=== PATIENT | male | born 1955 | race Caucasian/White ===

== ENCOUNTER → 2016-12-09 | Outpatient (CLI) | payer BC ==
[~2016-12-09] MED LIST: ASPI81TA28 PO; COEN100C11 PO; HYDR25TA5 PO; IBUP-1277 PO; LPT/20 PO; METO1TAB69 PO; MULTTAB PO; SILD100T PO; SYN125 PO
[2016-12-09 11:23] LABS: ESTIMATED AVERAGE GLUCOSE 117 mg/dl; HA1C FLAG Normal (Normal)
[2016-12-09 11:39] LABS: BASO % 0.3 %; BASO ABS # 0.02 K/uL (0-0.2); COMPLETE YES; EOS % 1.1 %; HEMATOCRIT 43.8 % (42-52); IG% 0.1 %; LYMPH % 27.5 %; LYMPH ABS # 2.07 K/uL (1.2-3.4); MEAN CELL VOLUME 85.9 fL (80-100); MEAN CORPUSCULAR HEMOGLOBIN 30.2 pg (25-34); MEAN CORPUSCULAR HGB CONC 35.2 g/dl (32-36); MEAN PLATELET VOLUME 11.3 fL (7.4-10.4); MONO % 5.7 %; NEUT % 65.3 %; PLATELET COUNT 162 K/uL (130-400); WHITE BLOOD COUNT 7.52 K/uL (4.8-10.8)
[2016-12-09 11:45] LABS: ALT/SGPT 33 U/L (12-78); BLOOD UREA NITROGEN 20 mg/dl (7-18); CALCIUM 8.8 mg/dl (8.5-10.1); CARBON DIOXIDE 26 mmol/L (21-32); CHLORIDE 106 mmol/L (98-107); CHOLESTEROL 141 mg/dl (0-200); GLUCOSE 107 mg/dl (70-99); POTASSIUM 3.9 mmol/L (3.5-5.1); SODIUM 141 mmol/L (136-145)
[2016-12-09 11:55] LABS: ALB/GLOB RATIO 1.3 (0.9-2); ALKALINE PHOSPHATASE 71 U/L (45-117); AST/SGOT 15 U/L (15-37); CHOLESTEROL/HDL RATIO 3.6; HDL CHOLESTEROL 39 mg/dl; LDL CHOLESTEROL CALCULATED 64 mg/dl; TRIGLYCERIDES 191 mg/dl (0-150); VERY LOW DENSITY LIPOPROT CALC 38 mg/dl
[2016-12-09 11:56] LABS: HEPATITIS B AB POS
[2016-12-13 14:38] LABS: HEP B QUANT <20 IU/mL (<20); HEP B QUANT LOG IU/ML <1.30 Log IU/mL (<1.30); HEPATITIS BE ANTIGEN TC 555 Nonreactive
== END | disposition home or self-care (01) ==
LOC: C.LABBC 08:44
PROVIDERS: ATTEND Internal Medicine
DX: I47.1 Supraventricular tachycardia (principal); B19.10 Unspecified viral hepatitis B without hepatic coma

== ENCOUNTER → 2017-01-17 | Outpatient (CLI) | payer BC | END | disposition home or self-care (01) | LOC: C.RDSM 08:30 | PROVIDERS: ATTEND Physical Medicine & Rehabilitation Sports Medicine | DX: M25.561 Pain in right knee (principal); M25.562 Pain in left knee ==

== ENCOUNTER → 2017-06-22 | Outpatient (CLI) | payer BC ==
--- NOTE | 2017-06-22 13:51 | DIAGNOSTIC IMAGING REPORT ---
SINUSES-MAXILLOFACIAL W/O HISTORY: 62 years-old Male J34.2 Deviated nasal [id number] COMPARISON: CT maxillofacial 07/05/2016 TECHNIQUE: Multiple axial CT images of the maxillofacial bones were obtained without IV contrast. Coronal reformatted images were obtained Venous enhancement for review. A dose lowering technique was used consistent with the principals of TACOS. FINDINGS: There has been prior bilateral maxillary antrostomy. Large area of polypoid mucosal thickening of the left maxillary sinus has increased in size, now measuring 3.4 x 2.7 x 4.0 cm, previously measuring up to 2.8 cm in greatest dimension. Mild polypoid mucosal thickening is seen within the floor of the right maxillary antrum. Focus of polypoid mucosal thickening is seen within the left nasopharynx, 3.0 x 2.2 cm, previously 1.8 x 0.8 cm. There is mild leftward deviation of the nasal septum with associated spurring. No nasal bone fracture identified. Facial bones appear intact. The mastoid air cells and middle ear cavities are clear. The sphenoid and frontal sinuses are generally clear. There is mild mucosal thickening of the ethmoid air cells. The sphenoethmoidal and frontoethmoidal recesses are widely patent. The bilateral maxillary ostiomeatal units are also widely patent. No Pj cells are identified. No large delroy bullosa. There are several periapical cysts of the left maxillary second molar. The imaged intracranial structures demonstrate no acute abnormality. There is mild cerebral atrophy. IMPRESSION: 1. Evidence of prior bilateral maxillary antrostomy with patency of the bilateral maxillary ostiomeatal units. 2. Worsened left maxillary sinus disease with increased size of the focus of polypoid mucosal thickening. 3. Probable polyp of the left nasopharynx has also increased in size from prior study, now measuring up to 3.0 cm. 4. Mild ethmoid sinus disease. The above report was generated using voice recognition software. It may contain grammatical, syntax or spelling errors. Electronically signed by: Chuy Carrera M.D. 06/22/2017 1:50 PM Dictated Date/Time: 06/22/2017 1:43 PM
== END | disposition home or self-care (01) ==
LOC: C.CTS 12:19
PROVIDERS: ATTEND Internal Medicine
DX: J34.2 Deviated nasal septum (principal)

== ENCOUNTER → 2017-07-07 | Outpatient (CLI) | payer BC | END | disposition home or self-care (01) | LOC: C.LABBC 14:56 | PROVIDERS: ATTEND Urology | DX: N40.1 Benign prostatic hyperplasia with lower urinary tract symptoms (principal); R39.12 Poor urinary stream ==

== ENCOUNTER → 2017-12-14 | Outpatient (CLI) | payer OTHER ==
[~2017-12-14] MED LIST changes: -LPT/20 PO; +LPT20 PO; +METO100T44 PO; -METO1TAB69 PO
[2017-12-14 12:11] LABS: HEMOGLOBIN A1C 5.5 % (4.5-5.6)
[2017-12-14 13:59] LABS: ALBUMIN 3.9 gm/dl (3.4-5.0); ALT/SGPT 26 U/L (12-78); BLOOD UREA NITROGEN 20 mg/dl (7-18); CALCIUM 8.7 mg/dl (8.5-10.1); CARBON DIOXIDE 28 mmol/L (21-32); CHOLESTEROL 136 mg/dl (0-200); CREATININE 1.13 mg/dl (0.60-1.40); GLUCOSE 122 mg/dl (70-99); POTASSIUM 3.9 mmol/L (3.5-5.1); SODIUM 138 mmol/L (136-145)
[2017-12-14 14:09] LABS: ALKALINE PHOSPHATASE 64 U/L (45-117); AST/SGOT 14 U/L (15-37); LDL CHOLESTEROL CALCULATED 64 mg/dl; TOTAL PROTEIN 7.1 gm/dl (6.4-8.2)
== END | disposition home or self-care (01) ==
LOC: C.LABBC 08:46
PROVIDERS: ATTEND Internal Medicine
DX: E03.9 Hypothyroidism, unspecified (principal); Z86.39 Personal history of other endocrine, nutritional and metabolic disease

== ENCOUNTER → 2018-03-08 | Outpatient (CLI) | payer OTHER ==
[2018-03-08 10:55] LABS: BLOOD UREA NITROGEN 20 mg/dl (7-18); CREATININE 1.13 mg/dl (0.60-1.40)
== END | disposition home or self-care (01) ==
LOC: C.LABBC 07:55
PROVIDERS: ATTEND Urology
DX: R39.12 Poor urinary stream (principal)

== ENCOUNTER 2019-08-13 14:10 | Observation (INO) ==
[2019-08-13] MEDS ORDERED: fentaNYL citrate 100 MCG/2 ML VIAL IV STA (15:16)
--- NOTE | 2019-08-13 15:30 | Emergency Department Note ---
ED Provider Note CHIEF COMPLAINT: Chest pain HISTORY OF PRESENTING ILLNESS: This is a 64-year-old male with past medical history significant for hypertension, dyslipidemia, type 2 diabetes, and a family history of coronary artery disease, who presents to the emergency department today with complaint of sudden onset of left-sided and midsternal chest pain that started about 2:15 PM. Patient states that the pain came on abruptly and "felt like a bomb going off in my chest," the pain was initially a 10/10, but is now improving and is more like a dull ache and he rates it as 6/10. Patient states when the pain started that he also felt very dizzy, nauseated, and diaphoretic, he reports all of these symptoms have resolved currently. There was no loss of consciousness. He denies shortness of breath, vomiting, or headache. Patient states the pain does not radiate into his neck, jaw, back, or arm, but does note that his left arm feels a little heavy and cold. He denies any numbness/tingling, or weakness of the arms or legs. He denies any history of coronary artery disease. He does note that he had a stress test a year ago that was normal. He is not a smoker. He denies any abdominal pain or back pain. The patient reports he took a full-strength aspirin this morning. REVIEW OF SYSTEMS: A complete 10 point review of systems was reviewed with the patient with pertinent positives and negatives as per history of present illness. All else were negative. PAST MEDICAL HISTORY: Hypertension, dyslipidemia, type 2 diabetes, hypothyroidism SOCIAL HISTORY: Lives at home with family, he denies tobacco use ALLERGIES: No known allergies PHYSICAL EXAM: CONSTITUTIONAL: Pleasant and cooperative. Nontoxic-appearing and in no acute distress. Well appearing and well nourished. HEENT: Normocephalic, atraumatic. PERRL, EOMI. Pharynx normal. NECK: Supple, full active range of motion without discomfort. No cervical adenopathy. RESPIRATORY: Clear to auscultation bilaterally with no wheezing, crackles, rhonchi or stridor. Equal expansion bilaterally. CARDIOVASCULAR: Regular rate and rhythm with no murmurs, rubs or gallops. Normal peripheral perfusion, 2+ distal pulses in all 4 extremities. No edema. CHEST WALL: Tenderness to palpation of the left anterior chest wall, somewhat reproduces complaint. No ecchymosis, swelling, erythema, or palpable crepitus. GASTROINTESTINAL: Soft, nontender, nondistended. No palpable masses or HSM. Bowel sounds present in all quadrants. No CVA tenderness bilaterally. MUSCULOSKELETAL: Full range of motion of all joints without discomfort. INTEGUMENTARY: No rash or other significant dermatologic conditions noted. NEUROLOGIC: Alert and oriented X 4 with normal affect. Cranial nerves II-XII grossly intact, no facial droop. No pronator drift. No focal neurologic deficits noted. 5/5 strength in all 4 extremities. Sensation intact to light touch in all 4 extremities. Normal speech. Normal gait observed. ED COURSE AND MEDICAL DECISION MAKING: CC: Patient presenting with complaint of chest pain DIFFERENTIAL DIAGNOSIS: Includes, but not limited to acute coronary syndrome, aortic dissection, pulmonary embolism, pneumothorax, pericarditis, myocarditis, anxiety, musculoskeletal pain, GERD, costochondritis, pneumonia, among others. INTERPRETATION OF LABS: No leukocytosis, no anemia, normal platelets, no significant electrolyte abnormalities, normal renal function, normal liver enzymes and lipase. Initial cardiac enzymes negative. Coagulation factors within normal limits. IMAGING: XR chest 1V portable CLINICAL HISTORY: Chest Pain COMPARISON STUDY: Chest radiograph September 18, 2018 FINDINGS: Lung volumes are normal. Lungs are clear. There is no pneumothorax or pleural effusion. Cardiomediastinal silhouette is stable. Mediastinal contours are normal. There is no evidence for pulmonary edema. IMPRESSION: No acute cardiopulmonary findings. ----- CT ANGIOGRAM OF THE CHEST COMBO CLINICAL HISTORY: Atypical chest pain. COMPARISON STUDY: Chest x-ray dated 08/13/2019. TECHNIQUE: Before and following the IV administration of 120 cc of Optiray 320, CT angiogram of the chest was performed from the thoracic inlet to the upper abdomen utilizing the dissection protocol. Images are reviewed in the axial, sagittal, and coronal planes. 3-D MIPS images are created and assessed. IV contrast was administered without complication. A dose lowering technique was utilized adhering to the principles of ALARA. CT DOSE: 1127.97 mGy.cm FINDINGS: Thyroid: Atrophic. Thoracic aorta: There is mild atherosclerotic calcification of the thoracic aorta. No intramural hematoma is seen on the unenhanced series. The thoracic aorta is normal in caliber and demonstrates standard 3-vessel arch anatomy. No dissection is seen. The arch vessels are widely patent. Pulmonary vasculature: The pulmonary trunk is normal in caliber. There are no central filling defects identified in the main, lobar, or segmental pulmonary arteries to indicate pulmonary embolus. Heart: The heart is mildly enlarged and without pericardial effusion. There are scattered coronary artery calcifications. Lungs and pleural spaces: There is no airspace consolidation or pleural effusion. The trachea and central airways are clear. Scattered calcified granulomas are observed. Scarring/atelectasis is noted in the lingula. There is a 7 mm left lower lobe pulmonary nodule seen on image #209. Mediastinum: There is no mediastinal lymphadenopathy. Kay: Clear. Axillae: There is no axillary lymphadenopathy. Upper abdomen: A 1.7 cm cyst is noted in the right hepatic lobe. Additional subcentimeter hepatic hypodensities also likely represent cysts but are too small for definitive characterization. The spleen is mildly enlarged measuring 13.6 cm in length. There is a calcified splenic granuloma. Skeletal structures: Mild degenerative changes noted in the shoulders and thoracic spine. No lytic or blastic bony lesions are seen. IMPRESSION: 1. There is no aneurysm or dissection identified involving the thoracic aorta. 2. There is no evidence of pulmonary embolus in the main, lobar, or segmental p ulmonary arteries. 3. There is no airspace consolidation or pleural effusion. 4. Mild cardiomegaly. 5. There is a 7 mm pathologically indeterminant left lower lobe pulmonary nodule. This can be followed as per the Fleischner criteria. See below. EKG: Shows normal sinus rhythm with a rate of 62 bpm, normal intervals, no ST or T wave abnormalities, no ectopy, no significant change when compared to previous EKG from 09/18/2018 by my interpretation. MEDICATION RECONCILIATION: I attest that I have personally reviewed the patient's current medication list. INITIAL VITAL SIGNS REVIEW: I reviewed the patient's initial vital signs and interpret them as follows: T: Afebrile; BP: Hypertensive; HR: Within normal limits; RR: Within normal limits; Pulse Ox: Within normal limits on room air. Blood pressure screening: The patient was found to have an elevated blood pressure and was referred to the inpatient team for further management. MDM SUMMARY: Patient was evaluated at bedside, history and physical exam performed. Patient is alert and oriented, in no acute distress, resting calmly in stretcher. Patient is complaining of a dull aching chest pain that he describes as starting suddenly and being severe and feeling like an explosion in his chest. At the initial onset of the chest pain, the patient was nauseated, dizzy, and diaphoretic, he states all of these have resolved currently. I did perform bilateral upper extremity blood pressures at the bedside, BP of the left arm 144/89; BP of the right arm 148/94. Patient has a Heart score of 4, placing him at moderate risk for chest pain presentation. EKG was reviewed at the bedside, noting normal sinus rhythm with no acute i schemic changes. Orders were placed at bedside for labs, IV fentanyl for pain, chest x-ray, CTA of the chest to evaluate for dissection. Patient discussed with Dr. Daniel, who agrees with my assessment, plan, and disposition. Labs and imaging reviewed as above, labs are unremarkable. Initial cardiac enzymes are all negative. CTA of the chest does not show any evidence of an aneurysm, aortic dissection, or pulmonary embolism. Given the patient's risk factors, I did feel that he would benefit from hospital admission for chest pain rule out. Patient reassessed multiple times throughout ED stay, he has remained hemodynamically stable and reports that his chest pain is almost completely gone after the fentanyl. The patient and his were updated on all results and plan for staying in the hospital for chest pain observation, they verbalized understanding and were agreeable to this plan. I spoke with Dr. Damico, [facility] Hospitalist, who agrees to evaluate the patient. The patient was stable at time of admission. The chart was completed utilizing Olo Speech voice recognition software. Grammatical errors, random word insertions, pronoun errors, and incomplete sentences are an occasional consequence of this system due to software limitations, ambient noise, and hardware issues. Any formal questions or concerns about the content, text, or information contained within the body of this dictation should be directly addressed to the nurse practitioner for clarification. Impression & Plan Acute chest pain, Hypertension Past Med/Surg History Medical History Dyslipidemia (Chronic) History of paroxysmal supraventricular tachycardia (Chronic) Hypothyroidism (Chronic) Social History Preferred Language: Palauan Communication Ability: Effective Fireproof Door Maker Required: No Beliefs That Will Affect Care: None Current Living Situation: Spouse and Family Other Information That Helps Us Care for You: No Feels Safe at Home: Yes Smoking Status: Never smoker Do You Dip or Chew Tobacco: No ; Second Hand Exposure: No ; Tobacco Cessation Education Requested by Patient: No Hx Alcohol Use: Yes Alcohol type: beer and wine Hx Substance Use: No Results & Data Vital Signs Vital Signs - 24 hr 08/13/19 14:11 08/13/19 14:17 08/13/19 14:31 Temperature 36.6 C Temperature Source Oral Sepsis Recent Fever Within 48 Hours No Sepsis New/Unexplained Change in Mental Status No Sepsis Action Taken by Nursing No Action Required Pulse Rate 63 67 Pulse Rate from SpO2 Sensor 69 Respiratory Rate 20 12 Respiratory Effort / Characteristics Respiratory Depth Blood Pressure 148/80 H 143/83 H Blood Pressure Mean 102 103 Blood Pressure Position Sitting Pulse Oximetry 96 98 97 Oxygen Delivery Method Room Air Room Air 08/13/19 14:33 08/13/19 14:40 08/13/19 14:51 Temperature Temperature Source Sepsis Recent Fever Within 48 Hours Sepsis New/Unexplained Change in Mental Status Sepsis Action Taken by Nursing Pulse Rate 66 67 Pulse Rate from SpO2 Sensor 66 67 Respiratory Rate 14 21 Respiratory Effort / Characteristics Non-Labored Spontaneous Respiratory Depth Normal Blood Pressure 136/82 Blood Pressure Mean 100 Blood Pressure Position Pulse Oximetry 99 Oxygen Delivery Method 08/13/19 15:38 08/13/19 16:30 08/13/19 17:00 Temperature Temperature Source Sepsis Recent Fever Within 48 Hours Sepsis New/Unexplained Change in Mental Status Sepsis Action Taken by Nursing Pulse Rate 60 63 66 Pulse Rate from SpO2 Sensor 63 66 Respiratory Rate 17 13 13 Respiratory Effort / Characteristics Respiratory Depth Blood Pressure 151/90 H 138/87 140/95 Blood Pressure Mean 110 104 110 Blood Pressure Position Pulse Oximetry 96 97 Oxygen Delivery Method Laboratory Data Result diagrams: 08/13/19 14:30 08/13/19 14:30 Lab Results 08/13/19 08/13/19 08/13/19 Range/Units 14:30 14:30 14:30 WBC 7.45 (4.8-10.8) K/uL RBC 4.94 (4.7-6.1) M/uL Hgb 15.0 (14.0-18.0) g/dL POC Hgb (14.0-18.0) g/dl Hct 43.5 (42-52) % POC Hct (42-52) % MCV 88.1 (80-100) fL MCH 30.4 (25-34) pg MCHC 34.5 (32-36) g/dL RDW Std Deviation 43.9 (36.4-46.3) fL RDW Coeff of Abdiel 13.6 (11.5-14.5) % Plt Count 146 (130-400) K/uL MPV 11.0 H (7.4-10.4) fL Immature Gran % (Auto) 0.3 % Neut % (Auto) 61.1 % Lymph % (Auto) 31.7 % Denali % (Auto) 5.8 % Eos % (Auto) 0.8 % Baso % (Auto) 0.3 % Immature Gran # (Auto) 0.02 (0.00-0.02) K/uL Neut # (Auto) 4.56 (1.4-6.5) K/uL Lymph # (Auto) 2.36 (1.2-3.4) K/uL Denali # (Auto) 0.43 (0.11-0.59) K/uL Eos # (Auto) 0.06 (0-0.5) K/uL Baso # (Auto) 0.02 (0-0.2) K/uL PT 10.3 (9.0-12.0) Seconds INR 1.0 (0.9-1.1) APTT 26.2 (21.0-31.0) Seconds PTT Ratio 1.0 POC Sodium (135-144) mEq/L Sodium 137 (136-145) mmol/L POC Potassium (3.3-5.0) mEq/L Potassium 3.5 (3.5-5.1) mmol/L POC Chloride (101-112) mEq/L Chloride 103 (98-107) mmol/L Carbon Dioxide 27 (21-32) mmol/L POC Total CO2 (24-31) mEq/l Anion Gap 7.0 (3-11) POC Anion Gap (16-25) mmol/L POC BUN (7-18) mg/dl BUN 15 (7-18) mg/dl Creatinine 1.05 (0.6-1.4) mg/dl POC Creatinine (0.6-1.3) mg/dl Est Cr Clr Drug Dosing 78.7 ml/min Est GFR ( Amer) 86.5 Est GFR (Non-Af Amer) 74.7 BUN/Creatinine Ratio 14.2 (10-20) Glucose 114 H (70-99) mg/dl POC Glucose (other) (70-99) mg/dl Calcium 9.3 (8.5-10.1) mg/dl POC Ioniz Calcium Obed (1.12-1.32) mmol/l Total Bilirubin 0.5 (0.2-1) mg/dl AST 13 L (15-37) U/L ALT 30 (12-78) U/L Alkaline Phosphatase 75 (45-117) U/L Total Creatine Kinase 63 (39-308) U/L CK-MB (CK-2) < 1.0 (0.5-3.6) ng/ml CK/CKMB % Calc TNP Troponin I < 0.015 (0-0.045) ng/ml Total Protein 7.3 (6.4-8.2) gm/dl Albumin 4.1 (3.4-5.0) gm/dl Globulin 3.2 (2.5-4.0) gm/dl Albumin/Globulin Ratio 1.3 (0.9-2) Lipase 153 (73-393) U/L 08/13/19 08/13/19 08/13/19 Range/Units 14:30 14:30 15:29 WBC (4.8-10.8) K/uL RBC (4.7-6.1) M/uL Hgb (14.0-18.0) g/dL POC Hgb 14.6 (14.0-18.0) g/dl Hct (42-52) % POC Hct 43 (42-52) % MCV (80-100) fL MCH (25-34) pg MCHC (32-36) g/dL RDW Std Deviation (36.4-46.3) fL RDW Coeff of Abdiel (11.5-14.5) % Plt Count (130-400) K/uL MPV (7.4-10.4) fL Immature Gran % (Auto) % Neut % (Auto) % Lymph % (Auto) % Denali % (Auto) % Eos % (Auto) % Baso % (Auto) % Immature Gran # (Auto) (0.00-0.02) K/uL Neut # (Auto) (1.4-6.5) K/uL Lymph # (Auto) (1.2-3.4) K/uL Denali # (Auto) (0.11-0.59) K/uL Eos # (Auto) (0-0.5) K/uL Baso # (Auto) (0-0.2) K/uL PT (9.0-12.0) Seconds INR (0.9-1.1) APTT (21.0-31.0) Seconds PTT Ratio POC Sodium 138 (135-144) mEq/L Sodium (136-145) mmol/L POC Potassium 3.4 (3.3-5.0) mEq/L Potassium (3.5-5.1) mmol/L POC Chloride 98 L (101-112) mEq/L Chloride (98-107) mmol/L Carbon Dioxide (21-32) mmol/L POC Total CO2 26 (24-31) mEq/l Anion Gap (3-11) POC Anion Gap 18.0 (16-25) mmol/L POC BUN 16 (7-18) mg/dl BUN (7-18) mg/dl Creatinine (0.6-1.4) mg/dl POC Creatinine 1.0 (0.6-1.3) mg/dl Est Cr Clr Drug Dosing ml/min Est GFR ( Amer) Est GFR (Non-Af Amer) BUN/Creatinine Ratio (10-20) Glucose (70-99) mg/dl POC Glucose (other) 114 H (70-99) mg/dl Calcium (8.5-10.1) mg/dl POC Ioniz Calcium Obed 1.19 (1.12-1.32) mmol/l Total Bilirubin (0.2-1) mg/dl AST (15-37) U/L ALT (12-78) U/L Alkaline Phosphatase (45-117) U/L Total Creatine Kinase Cancelled (39-308) U/L CK-MB (CK-2) Cancelled (0.5-3.6) ng/ml CK/CKMB % Calc Cancelled Troponin I (0-0.045) ng/ml Total Protein (6.4-8.2) gm/dl Albumin (3.4-5.0) gm/dl Globulin (2.5-4.0) gm/dl Albumin/Globulin Ratio (0.9-2) Lipase Cancelled (73-393) U/L Administered Medications Hydrochlorothiazide (Hctz) 12.5 mg PO DAILY@1700 TRIP Stop: 09/12/19 19:29 Last Admin: 08/13/19 21:22 Dose: 12.5 mg Documented by: [id number] Ioversol (Optiray 320 100ml) 120 ml IV ONCE PRN PRN Reason: Interaction Checking Stop: 08/17/19 16:04 Last Admin: 08/13/19 16:06 Dose: 120 ml Documented by: [id number] Discontinued Medications Fentanyl Citrate (Fentanyl Citrate) 50 mcg IV NOW STA Stop: 08/13/19 15:17 Last Admin: 08/13/19 15:39 Dose: 50 mcg Documented by: [id number] Discharge Plan Visit Data *Final* Discharge Date/Time: 08/13/19 18:17 Chief Complaint: Chest Pain Stated Complaint: CHEST PAIN,SWEATY,DIZZY ED Provider: Abebe Daniel ED Midlevel Provider: Basilia Cantrell Discharge Problem: Acute chest pain, Hypertension Patient Disposition: Admitted As Inpatient Condition: Good Discharge Instructions Interventions: ED Discharge Assessment Last Done: 08/13/19 18:17
[2019-08-13 15:35] LABS: Alanine Aminotransferase 30 U/L (12-78); Albumin Level 4.1 gm/dl (3.4-5.0); Aspartate Aminotransferase 13 U/L (15-37); BUN Creatinine Ratio 14.2 (10-20); Blood Urea Nitrogen 15 mg/dl (7-18); Calcium 9.3 mg/dl (8.5-10.1); Carbon Dioxide 27 mmol/L (21-32); Chloride 103 mmol/L (98-107); Creatinine Clr Calc Pharmacy 78.7 ml/min; Est GFR (African American) 86.5; Est GFR (Non-African American) 74.7; Glucose 114 mg/dl (70-99); Potassium 3.5 mmol/L (3.5-5.1); Sodium 137 mmol/L (136-145)
[2019-08-13 15:40] LABS: Albumin Globulin Ratio 1.3 (0.9-2); Alkaline Phosphatase 75 U/L (45-117); Bilirubin,Total 0.5 mg/dl (0.2-1); Globulin 3.2 gm/dl (2.5-4.0); Total Protein 7.3 gm/dl (6.4-8.2); Troponin I < 0.015 ng/ml (0-0.045)
[2019-08-13 15:42] LABS: Partial Thromboplastin Time 26.2 Seconds (21.0-31.0); Prothrombin Time 10.3 Seconds (9.0-12.0)
[2019-08-13 15:42] LABS: iSTAT Hemoglobin 14.6 g/dl (14.0-18.0); iSTAT Ionized Calcium 1.19 mmol/l (1.12-1.32); iSTAT Potassium 3.4 mEq/L (3.3-5.0)
--- NOTE | 2019-08-13 15:43 | XRay Report ---
XR chest 1V portable CLINICAL HISTORY: Chest Pain COMPARISON STUDY: Chest radiograph September 18, 2018 FINDINGS: Lung volumes are normal. Lungs are clear. There is no pneumothorax or pleural effusion. Car diomediastinal silhouette is stable. Mediastinal contours are normal. There is no evidence for pulmon ambar edema. IMPRESSION: No acute cardiopulmonary findings. Electronically signed by: Serjio Harding M.D. 08/13/2019 3:41 PM
[2019-08-13] MEDS ORDERED: IOVERSOL 100ml IV PRN (16:05)
[2019-08-13 16:09] LABS: Basophils # (auto) 0.02 K/uL (0-0.2); Basophils % (auto) 0.3 %; Eosinophils # (auto) 0.06 K/uL (0-0.5); Eosinophils % (auto) 0.8 %; Hematocrit (blood only) 43.5 % (42-52); Immature Granulocytes # (auto) 0.02 K/uL (0.00-0.02); Immature Granulocytes % (auto) 0.3 %; Lymphocytes # (auto) 2.36 K/uL (1.2-3.4); Lymphocytes % (auto) 31.7 %; Mean Corpuscular Hemoglobin 30.4 pg (25-34); Mean Corpuscular Hgb Conc 34.5 g/dL (32-36); Mean Corpuscular Volume 88.1 fL (80-100); Monocytes # (auto) 0.43 K/uL (0.11-0.59); Monocytes % (auto) 5.8 %; Neutrophils # (auto) 4.56 K/uL (1.4-6.5); Neutrophils % (auto) 61.1 %; Platelet Count 146 K/uL (130-400); RDW Coefficient of Variation 13.6 % (11.5-14.5); RDW Standard Deviation 43.9 fL (36.4-46.3); Red Blood Count 4.94 M/uL (4.7-6.1); White Blood Count 7.45 K/uL (4.8-10.8)
--- NOTE | 2019-08-13 16:28 | CT Scan Report ---
CT ANGIOGRAM OF THE CHEST COMBO CLINICAL HISTORY: Atypical chest pain. COMPARISON STUDY: Chest x-ray dated 08/13/2019. TECHNIQUE: Before and following the IV administration of 120 cc of Optiray 320, CT angiogram of the c hest was performed from the thoracic inlet to the upper abdomen utilizing the dissection protocol. Im ages are reviewed in the axial, sagittal, and coronal planes. 3-D MIPS images are created and assesse d. IV contrast was administered without complication. A dose lowering technique was utilized adherin g to the principles of ALARA. CT DOSE: 1127.97 mGy.cm FINDINGS: Thyroid: Atrophic. Thoracic aorta: There is mild atherosclerotic calcification of the thoracic aorta. No intramural nat michael is seen on the unenhanced series. The thoracic aorta is normal in caliber and demonstrates stand leon 3-vessel arch anatomy. No dissection is seen. The arch vessels are widely patent. Pulmonary vasculature: The pulmonary trunk is normal in caliber. There are no central filling defects identified in the main, lobar, or segmental pulmonary arteries to indicate pulmonary embolus. Heart: The heart is mildly enlarged and without pericardial effusion. There are scattered coronary ar mercedes calcifications. Lungs and pleural spaces: There is no airspace consolidation or pleural effusion. The trachea and rubin tral airways are clear. Scattered calcified granulomas are observed. Scarring/atelectasis is noted in the lingula. There is a 7 mm left lower lobe pulmonary nodule seen on image #209. Mediastinum: There is no mediastinal lymphadenopathy. Kay: Clear. Axillae: There is no axillary lymphadenopathy. Upper abdomen: A 1.7 cm cyst is noted in the right hepatic lobe. Additional subcentimeter hepatic hyp odensities also likely represent cysts but are too small for definitive characterization. The spleen is mildly enlarged measuring 13.6 cm in length. There is a calcified splenic granuloma. Skeletal structures: Mild degenerative changes noted in the shoulders and thoracic spine. No lytic or blastic bony lesions are seen. IMPRESSION: 1. There is no aneurysm or dissection identified involving the thoracic aorta. 2. There is no evidence of pulmonary embolus in the main, lobar, or segmental pulmonary arteries. 3. There is no airspace consolidation or pleural effusion. 4. Mild cardiomegaly. 5. There is a 7 mm pathologically indeterminant left lower lobe pulmonary nodule. This can be followe d as per the Fleischner criteria. See below. Please refer to below summary of Fleischner criteria recommendations for follow-up of incidental CT n odules ([place], Guidelines for management of small pulmonary nodules detected on CT scans: A octavio tement from the Fleischner Society, Radiology 237: [phone].) SOLID NODULES Solitary nodule size: <6 mm * low risk patients: no follow-up needed * high risk patients: optional CT at 12 months Solitary nodule size: 6-8 mm * low risk patients: follow-up at 6-12 months, then consider further follow-up at 18-24 months * high risk patients: initial follow-up CT at 6-12 months and then at 18-24 months if no change Solitary nodule size: >8 mm * either low or high risk patients - consider follow-up CT at 3 months, and/or CT-PET, and/or biopsy Multiple nodules size: <6 mm * low risk patients: no routine follow-up * high risk patients: optional CT at 12 months Multiple nodules size: 6-8 mm * low risk patients: follow-up at 3-6 months, then consider further follow-up at 18-24 months * high risk patients: follow-up at 3-6 months, then at 18-24 months if no change Multiple nodules size: >8 mm * low risk patients: follow-up at 3-6 months, then consider further follow-up at 18-24 months * high risk patients: follow-up at 3-6 months, then at 18-24 months if no change Note: newly detected indeterminate nodule in persons 35 years of age or older. * low risk patients: minimal or absent history of smoking and/or other known risk factors * high risk patients: history of smoking or of other known risk factors (e.g. first degree relative with lung cancer, or exposure to asbestos, radon, uranium) * if a nodule up to 8 mm is partly solid or is ground glass further follow-up is required after 24 m onths to exclude possible slow growing adenocarcinoma (LINNEA) SUBSOLID NODULES Solitary pure ground-glass nodule * nodule size <6 mm - no CT follow-up required * nodule size >=6 mm - follow-up CT at 6-12 months, then every 2 years until 5 years Solitary part-solid nodule * nodule size <6 mm - no CT follow-up required * nodule size >=6 mm - follow-up CT at 3-6 months. If unchanged, and solid component remains <6 mm, then annual follow-up for 5 years Multiple subsolid nodules * nodule size <6 mm - follow-up CT at 3-6 months, consider further follow-up at 2 and 4 years if sta ble * nodule size >=6 mm - follow-up CT at 3-6 months, subsequent management based on the most suspiciou s nodule(s) Electronically signed by: Jamie De La Fuente M.D. 08/13/2019 4:27 PM
[2019-08-13 16:37] LABS: Creatine Kinase 63 U/L (39-308); Lipase 153 U/L (73-393)
[2019-08-13 16:41] LABS: Creatine Kinase MB < 1.0 ng/ml (0.5-3.6)
[2019-08-13] MEDS ORDERED: IBUPROFEN 200 MG TAB PO PRN (17:49)
[2019-08-13] MEDS ORDERED: ACETAMINOPHEN 325 MG TAB PO PRN (17:50)
--- NOTE | 2019-08-13 17:54 | Hospitalist Progress Note ---
Date of Service August 13, 2019 Assessment & Plan (1) Chest pain: admit obs PCU trend troponins, initial negative CT chest without acute process - no dissection, aneurysm or PE Patient had negative stress echo in February CBC, prp am (2) Dyslipidemia: Continue statin (3) Hypothyroidism: Continue levothyroxine (4) Hypertension: Continue metoprolol, hctz (5) Pulmonary nodule: As seen on CT 7 mm pathologically indeterminate nodule LLL consult pulmonary nodule program and follow outpatient (6) DVT prophylaxis: SCDs Supervising Physician Co-Signing Physician Notes I supervised Basilia Morse NP on this patient's care. I examined the patient today independently of her. I discussed the plan of care with her with the plan being as written in her note except for any following changes/exceptions: None. 64yo M w/ hx of HTN who presents with left substernal chest pain, described as an "explosion" that occurred during a meeting at 2pm. He reports some radiation to the left shoulder and also some dizziness at the time. No current pain. Vitals within normal limits. Cardiac and pulmonary exam are normal. Stress test done ~February 2019 was normal. - Trend troponins and EKGs. - If pain free and no positive findings, can likely discharge with PCP follow up. Subjective Mr. Braxton was in a meeting this afternoon around 2 pm when he had pain in his left chest "like a bomb" with 10/10 pain. No radiation, diaphoresis, n/v, sob, cough. He did become dizzy. He has never had anything like this before. This weekend he spent quite a bit of time gardening but otherwise has not had any strenuous activity. pmhx: dyslipidemia, hypertension, hypothyroid, diet controlled type II diabetes Family: mother d. 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, occasional alcohol Review of Systems Review of Systems: All systems reviewed & are unremarkable except as noted in HPI & below Physical Exam Physical Exam: General: no distress Eyes: normal inspection, PERLL Respiratory: chest non tender, clear to auscultation, normal breath sounds, no respiratory distress, no accessory muscle use Cardiac: regular rate and rhythm, no rub or gallop, no murmur, no edema, no jvd GI/: active bowel sounds, no abd pain or tenderness, soft, non distended Extremities: normal range of motion, normal strength, non tender, left chest tender to palpation Neuro/Psych: alert and oriented x 3, normal mood and affect Skin: normal color, dry Results & Data Vital Signs (Past 12 Hours) Vital Signs Temp Pulse Resp BP Pulse Ox 08/13/19 15:38 60 17 151/90 H 08/13/19 14:40 67 21 99 08/13/19 14:33 66 14 136/82 08/13/19 14:31 67 12 143/83 H 97 08/13/19 14:17 36.6 C 63 20 148/80 H 98 08/13/19 14:11 96 PG Care Time/CCT Total # of Minutes Spent Total Time Spent with Patient: Total time spent is greater than 50% in coordination of care (as documented) at patient's floor/unit and/or counseling patient: (1) Chest pain Chest pain type: unspecified Qualified Code(s): R07.9 - Chest pain, u nspecified
[2019-08-13] MEDS ORDERED: hydroCHLOROthiazide 25 MG TAB PO SCH (19:30)
[2019-08-14 03:30] LABS: Basophils # (auto) 0.01 K/uL (0-0.2); Basophils % (auto) 0.1 %; Eosinophils # (auto) 0.07 K/uL (0-0.5); Hematocrit (blood only) 41.3 % (42-52); Hemoglobin 14.4 g/dL (14.0-18.0); Lymphocytes # (auto) 2.08 K/uL (1.2-3.4); Lymphocytes % (auto) 28.3 %; Mean Corpuscular Hemoglobin 30.4 pg (25-34); Mean Corpuscular Hgb Conc 34.9 g/dL (32-36); Mean Corpuscular Volume 87.3 fL (80-100); Mean Platelet Volume 10.6 fL (7.4-10.4); Monocytes # (auto) 0.56 K/uL (0.11-0.59); Monocytes % (auto) 7.6 %; Neutrophils # (auto) 4.64 K/uL (1.4-6.5); Platelet Count 132 K/uL (130-400); RDW Coefficient of Variation 13.2 % (11.5-14.5); RDW Standard Deviation 42.2 fL (36.4-46.3); Red Blood Count 4.73 M/uL (4.7-6.1); White Blood Count 7.36 K/uL (4.8-10.8)
[2019-08-14 03:47] LABS: BUN Creatinine Ratio 13.2 (10-20); Blood Urea Nitrogen 13 mg/dl (7-18); Calcium 8.6 mg/dl (8.5-10.1); Carbon Dioxide 27 mmol/L (21-32); Chloride 104 mmol/L (98-107); Creatinine Clr Calc Pharmacy 79.1 ml/min; Est GFR (African American) 90.7; Est GFR (Non-African American) 78.2; Glucose 103 mg/dl (70-99); Potassium 3.5 mmol/L (3.5-5.1); Sodium 139 mmol/L (136-145)
[2019-08-14 03:51] LABS: Troponin I < 0.015 ng/ml (0-0.045)
[2019-08-14 05:39] VITALS: O2SAT 95
[2019-08-14] MEDS ORDERED: LEVOTHYROXINE SODIUM 112 MCG TABLET PO SCH (06:30)
[2019-08-14 07:55] VITALS: TEMP 98.1
[2019-08-14] MEDS ORDERED: KETOROLAC 30 MG/ML VIAL IV ONE (08:15)
[2019-08-14] MEDS ORDERED: METOPROLOL SUCC 50MG EXT REL TAB PO SCH (09:00)
[2019-08-14] MEDS ORDERED: ATORVASTATIN 20 MG TAB PO SCH (09:00)
[2019-08-14] MEDS ORDERED: NON-FORMULARY MEDICATION (Coq10 (Ubiquinol) 200 MG) PO SCH (09:00)
[2019-08-14] MEDS ORDERED: CEROVITE ADV FORMULA TAB PO SCH (09:00)
--- NOTE | 2019-08-14 09:56 | Discharge Summary ---
Date of Service August 14, 2019 Admission HPI Per Admitting Provider Mr. Braxton was in a meeting this afternoon around 2 pm when he had pain in his left chest "like a bomb" with 10/10 pain. No radiation, diaphoresis, n/v, sob, cough. He did become dizzy. He has never had anything like this before. This weekend he spent quite a bit of time gardening but otherwise has not had any strenuous activity. pmhx: dyslipidemia, hypertension, hypothyroid, diet controlled type II diabetes Family: mother d. 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 Principal Diagnosis Chest pain Discharge Exam Constitutional WD/WN, vitals as above Eyes PERRL, conjunctivae normal, anicteric sclerae Respiratory normal respiratory effort, lungs clear to auscultation Cardiovascular RRR, no murmur, no edema Gastrointestinal (Abdomen) normal bowel sounds, soft, nontender, no hepatosplenomegaly Musculoskeletal no cyanosis or clubbing, extremities motor strength 5/5 left chest tenderness to palpation Skin no rashes, warm and dry Neurologic moves all extremities and awake Psychiatric A+Ox3, euthymic affect Discharge Data Allergies Allergy/AdvReac Type Severity Reaction Status Date / Time No Known Allergies Allergy Mild Unverified 08/13/19 14:53 Consultations 08/13/19 16:42 ED Decision to Admit Stat 08/13/19 19:10 Consult Lung Nodule Program Routine Ordered Studies 08/13/19 15:16 CT angio chest dissec wo/w con Stat Hospital Course (1) Chest pain: observed overnight on telemetry - no events EKG on presentation to ED showed normal SR Troponins negative x3 CT chest without acute process - no dissection, aneurysm or PE Patient had negative stress echo in February Small amount of relief from Toradol but ongoing dull 3/10 chest pain, somewhat reproducible to palpation of left chest - this is most likely musculoskeletal. Mr. Braxton also recalls pulling very hard with his left arm while gardening over the weekend. (2) Dyslipidemia: Continue statin (3) Hypothyroidism: Continue levothyroxine (4) Hypertension: Continue metoprolol, hctz (5) Pulmonary nodule: As seen on CT 7 mm pathologically indeterminate nodule LLL consult pulmonary nodule program and follow outpatient (6) DVT prophylaxis: SCDs Total Time Total Time Spent Total Time Spent (In Minutes): greater than 30 minutes Discharge Plan Discharge Items Patient Disposition: Home - Self-Care Reason For Visit: CHEST PAIN Discharge Diagnosis: Chest pain Condition on Discharge: Good Activity: Resume your previous activity Activity Comment: gradually as tolerated Non-emergency contact: Primary Care Provider Call non-emergency contact if: you have any medication questions, your symptoms worsen, your pain is not controlled and your pain is worsening Follow-up/Referrals: Sadiq Morse MD [Primary Care Provider] - Diet: Heart Healthy Addtl Attending Provider Instructions: You were admitted for observation of your chest pain of which we do not see evidence that it is heart related at this time. Your troponins (lab work to indicate cardiac injury) remained normal and there were no dysrhythmias seen on your heart monitor during your stay. Your EKG showed was normal. You also did not have any acute abnormalities on your chest CT that might indicate aneurysm, dissection or pulmonary embolism. Additionally, you have had a recent negative stress test in February. Please see your primary care provider within about a week. If you have any return of chest pain with radiation to arm or jaw, shortness of breath, dizziness, sweating, nausea or vomiting you should return to the emergency department You will need to have a follow up CT of a pulmonary nodule found incidentally on your scan in 6-12 months Pending Studies at Discharge: No Stand-Alone Forms: Call Back Authorization, [facility] Medications and DC Order Prescriptions: Continued atorvastatin 20 mg tablet 20 mg PO QAM RF: 0 metoprolol succinate 100 mg tablet extended release 24 hr 100 mg PO QAM RF: 0 aspirin [Aspirin Low Dose] 81 mg Tablet,Delayed Release (Dr/Ec) 81 mg PO Q3D RF: 0 ibuprofen 400 mg Tablet 400 mg PO BID PRN (Reason: Pain) RF: 0 hydrochlorothiazide 12.5 mg capsule 12.5 mg PO QPM RF: 0 multivitamin with minerals Tablet 1 tab PO QAM RF: 0 levothyroxine 112 mcg tablet 112 mcg PO QAM RF: 0 coQ10 (ubiquinol) 200 mg Capsule 200 mg PO QAM RF: 0 Discharge Orders: Discharge Order (Routine); Ordered 08/14/19 Ordered By: Basilia Morse Admission Data Admit Date/Time: 08/13/19 17:50 Attending Provider: Akbar,[place] J. Admit Provider: Clive Akbar Primary Care Provider: Sadiq Morse Other Providers: Laura Briceño
[2019-08-14] MEDS ORDERED: ALUMINUM/MAGNESIUM SUSP 18 ML, LIDOCAINE HCL VISCOUS 2% 6 ML, BARCODE IDENTIFIER 1 EA PO ONE (10:15)
[2019-08-14 10:54] VITALS: BP 119/77; PULSE 62
[2019-08-16] MEDS ORDERED: ASPIRIN 81 MG ECTAB PO SCH (09:00)
== END 2019-08-14 11:05 | disposition home or self-care (01) ==
LOC: 2S 14:10 → ED 14:10 → 2S 18:17